=== PATIENT | female | born 1955 | race Caucasian/White ===

== ENCOUNTER 2024-06-10 11:47 | Day surgery (SDC) | payer MEDICARE, OTHER ==
[2024-06-10] MEDS ORDERED: LIDOCAINE HCL 2% 100 MG/5 ML IJ ONE (11:48)
[2024-06-10] MEDS ORDERED: Depo-Medrol 40 MG/ML IM ONE (11:48)
[2024-06-10] MEDS ORDERED: propofoL IV ONE (13:56)
--- NOTE | 2024-06-10 15:00 | XRAY ---
Indication: Bilateral L4-S1 MBB. Intraoperative fluoroscopy provided for 12 seconds. Single digital spot image submitted for interpretation demonstrates posterior needle tips projecting over expected left and right L4-S1 nerve roots. Correlate with intraoperative findings/report.
--- NOTE | 2024-06-10 15:02 | XRAY ---
12 seconds of fluoroscopy was used in surgery for a bilateral L4-S1 MBB.
== END 2024-06-10 14:26 | disposition home or self-care (01) ==
LOC: SDC-PAIN 11:47
PROVIDERS: ATTEND Psychiatry & Neurology Pain Medicine
DX: M47.816 Spondylosis without myelopathy or radiculopathy, lumbar region (principal)
CPT/HCPCS: 64493; 64494; 72020; 77002; J2704

== ENCOUNTER 2024-07-07 11:58 | Day surgery (SDC) | payer MEDICARE, OTHER ==
[2024-07-07] MEDS ORDERED: BUPIVACAINE 0.5% VIAL IJ ONE (11:59)
[2024-07-07] MEDS ORDERED: Depo-Medrol 40 MG/ML IM ONE (11:59)
[2024-07-07] MEDS ORDERED: propofoL IV ONE (13:33)
--- NOTE | 2024-07-07 14:41 | XRAY ---
Indication: Bilateral L4-S1 MBB. Intraoperative fluoroscopy provided for 13 seconds. Single digital spot image submitted for interpretation demonstrates posterior needle tips project over expected left and right L4-S1 nerve roots. Correlate with intraoperative findings/report.
--- NOTE | 2024-07-07 14:44 | XRAY ---
13 seconds of fluoroscopy was used in surgery for a bilateral L4-S1 MBB.
== END 2024-07-07 14:16 | disposition home or self-care (01) ==
LOC: SDC-PAIN 11:58
PROVIDERS: ATTEND Psychiatry & Neurology Pain Medicine
DX: M47.816 Spondylosis without myelopathy or radiculopathy, lumbar region (principal)
CPT/HCPCS: 64493; 64494; 72020; 77002; J2704